=== PATIENT | female | born 1955 | race Caucasian/White ===

== ENCOUNTER 2018-10-17 18:21 | Emergency (ER) | payer OTHER, BC ==
[2018-10-17 18:28] VITALS: BP 124/66; PULSE 65; TEMP 98.7; BMI 23.5
--- NOTE | 2018-10-17 18:57 | PDOC ---
History of Present Illness - General Chief Complaint: Pain, Acute Stated Complaint: RIGHT FOOT PAIN Time Seen by Provider: 10/17/18 18:24 History Source: Patient Exam Limitations: No Limitations - History of Present Illness Initial Comments: 62 yo F PMH HTN, lupus w/ kidney damage and previous MS, p/w R foot pain. Said that she was walking in [employer] when she felt a sudden pain in the middle of her foot. Got worse, and by the time she got to the car, she was unable to walk. Describes the pain as 10/10, throbbing. Tylenol did not help. Also states that she cannot dorsiflex or plantarflex 2/2 to pain. Endorses "shocking" twitches of her foot, which has calmed down with application of ice. Denies CP, SOB, wheezing, constipation/diarrhea, fevers/chills, recent illness. Endorses chronic generalized fatigue. 10/17/18 18:52 Past History - Past Medical History Allergies/Adverse Reactions: Allergies Allergy/AdvReac Type Severity Reaction Status Date / Time Penicillins Allergy Verified 09/10/12 15:23 Home Medications: Ambulatory Orders Atenolol [Tenormin] 25 mg PO DAILY 09/10/12 Doxazosin Mesylate 2 mg PO DAILY 09/10/12 Losartan Potassium [Cozaar] 50 mg PO DAILY 09/10/12 Nifedipine [Procardia Xl] 30 mg PO BID 09/10/12 Sertraline HCl 50 mg PO DAILY 09/10/12 Hydroxychloroquine Sulfate [Plaquenil] 200 mg PO BID 10/17/18 COPD: No Dialysis: Yes Disorders: Yes (RENAL INSUFFICIENCY) HTN: Yes - Suicide/Smoking/Psychosocial Hx Smoking Status: No Smoking History: Never smoked Number of Cigarettes Smoked Daily: 0 Hx Alcohol Use: No Drug/Substance Use Hx: No Review of Systems - Review of Systems Constitutional: Yes: Other (fatigue, chronic). No: Chills, Fever HEENTM: No: Recent change in vision, Hearing Loss, Difficulty Swallowing Respiratory: No: Cough, Shortness of Breath Cardiac (ROS): No: Chest Pain ABD/GI: No: Constipated, Diarrhea, Nausea, Vomiting Neurological: No: Headache *Physical Exam - Vital Signs Last Vital Signs Temp Pulse Resp BP Pulse Ox 98.7 F 65 17 124/66 98 10/17/18 18:22 10/17/18 18:22 10/17/18 18:22 10/17/18 18:22 10/17/18 18:22 - Physical Exam General Appearance: Yes: Nourished, Appropriately Dressed, Mild Distress HEENT: positive: EOMI, MYA, Normal ENT Inspection, Normal Voice, Pharynx Normal Neck: positive: Trachea midline, Supple. negative: Tender Respiratory/Chest: positive: Lungs Clear, Normal Breath Sounds. negative: Chest Tender, Respiratory Distress, Accessory Muscle Use Cardiovascular: positive: Regular Rhythm, Regular Rate Gastrointestinal/Abdominal: positive: Normal Bowel Sounds, Soft. negative: Tender Musculoskeletal: positive: Other (R foot dorsum edema, no erythema. TTP, inability to dorsiflex or plantarflex 2/2 pain. Sensation intact) ED Treatment Course - LABORATORY CBC & Chemistry Diagram: 10/17/18 18:55 10/17/18 18:55 - RADIOLOGY Radiology Studies Ordered: Category Date Time Status FOOT-RIGHT [RAD] Stat Radiology 10/17/18 18:50 Ordered Medical Decision Making - Medical Decision Making CBC CMP ESR uric acid 10/17/18 18:59 Hgb 10.1. Patient uncertain about whether she has had anemia in the past. With complaints of fatigue, strongly encouraged her to see her PCP for further workup. 10/17/18 19:55 Patient complaining of severe pain, giving 2mg of morphine. 10/17/18 20:12 *DC/Admit/Observation/Transfer Diagnosis at time of Disposition: Right foot pain - Discharge Dispostion Disposition: HOME Condition at time of disposition: Guarded Decision to Admit order: No - Referrals Referrals: Christina Finch MD [Primary Care Provider] - Lexa Tomlin MD [Staff Physician] - - Patient Instructions Printed Discharge Instructions: DI for Foot Pain Additional Instructions: You were seen with right foot pain. Your X rays did not show any acute fracture. Please follow up with an orthopedist for further workup. Your labs did show that you have anemia, with a hemoglobin of 10.1. Please follow up with your primary care doctor for further workup. Return to the ED if you develop worsening pain, swelling, loss of sensation, or loss of motor function. - Post Discharge Activity
[2018-10-17 19:11] LABS: BASO % 0.5 % (0-2.0); EOS % 2.2 % (0-4.5); HEMATOCRIT 30.8 % (32.4-45.2); HEMOGLOBIN 10.1 GM/dl (10.7-15.3); LYMPH % 21.3 % (8-40); MCH 31.3 pg (25.7-33.7); MCHC 32.7 g/dl (32.0-36.0); MEAN CELL VOLUME 95.5 fl (80-96); MEAN PLT VOLUME 7.8 fl (7.5-11.1); MONO % 7.2 % (3.8-10.2); NEUT % 68.8 % (42.8-82.8); PLATELET COUNT 268 K/MM3 (134-434); RBC 3.22 M/mm3 (3.60-5.2); RDW 12.5 % (11.6-15.6); WHITE BLOOD COUNT 9.7 K/mm3 (4.0-10.8)
[2018-10-17 19:34] LABS: ALBUMIN 3.5 g/dl (3.4-5.0); BILIRUBIN,TOTAL 0.4 mg/dl (0.2-1); CREATININE 1.6 mg/dl (0.55-1.3); POTASSIUM 4.2 mmol/L (3.5-5.1); TOT PROT 6.3 g/dl (6.4-8.2); URIC ACID 5.9 mg/dl (2.6-7.2)
[2018-10-17] MEDS ORDERED: morphine CARPU-JECT 4 MG/1 ML DISP.SYRIN IVPUSH ONE (20:05)
[2018-10-17] MEDS ORDERED: ACETAMINOPHEN 500 MG TABLET (FP) PO ONE (20:18)
[2018-10-17 20:26] LABS: URINE APPEARANCE CLEAR; URINE BILIRUBIN NEGATIVE (NEGATIVE); URINE COLOR YELLOW; URINE GLUCOSE (UA) NEGATIVE (NEGATIVE); URINE KETONE NEGATIVE (NEGATIVE); URINE LEUK ESTERASE 1+ (NEGATIVE); URINE NITRITE NEGATIVE (NEGATIVE); URINE PROTEIN NEGATIVE (NEGATIVE); URINE UROBILINOGEN 0.2 (0.2-1.0)
[2018-10-17 20:33] LABS: EPI CELLS FEW /HPF; URINE RBC 0-2 /hpf (0-4)
[2018-10-17] MEDS ORDERED: ACETAMINOPHEN 325 MG TABLET (FP) ONE (20:35)
--- NOTE | 2018-10-21 07:45 | PDOC ---
Documentation entered by Sandra Sen SCRIBE, acting as scribe for Rodney Murray MD. Rodney Wallace MD: This documentation has been prepared by the Mckinley garcia Aiswarya, SCRIBE, under my direction and personally reviewed by me in its entirety. I confirm that the documentation accurately reflects all work, treatment, procedures, and medical decision making performed by me. Attending Attestation - Resident Resident Name: SternBecky ponce - ED Attending Attestation I have performed the following: I have examined & evaluated the patient, The case was reviewed & discussed with the resident, I agree w/resident's findings & plan, Exceptions are as noted - HPI HPI: 10/17/18 18:42 Sudden onset of right foot pain while walking [place] [employer]. No acute injury. Pain is on the dorsum of the foot and ankle. There are no physical findings of deformity or inflammation. History of lupus but no prior joint involvement. Also with hypertension and elevated cholesterol. - Physicial Exam PE: 10/17/18 18:59 GENERAL: Awake, alert, and fully oriented, in no acute distress LUNGS: Breath sounds equal, clear to auscultation bilaterally. No wheezes, and no crackles HEART: Regular rate and rhythm, normal S1 and S2, no murmurs, rubs or gallops EXTREMITIES: +Right foot tenderness over the dorsum of the right foot. No clubbing or cyanosis. No cords. NEUROLOGICAL: Cranial nerves II through XII grossly intact. Normal speech, normal gait SKIN: +Right foot mild erythematous tenderness over the dorsum of the right foot. No plantar inflammation. Pulse full. No other deformities. No posterior calf swelling tenderness. No other signs of joint inflammation in other area. - Medical Decision Making 10/21/18 07:44 Assessment: Most likely acute sprain. Other possibilities include avulsion fracture, gout, or flareup of lupus. Plan: X-ray, sedimentation rate, uric acid, CBC and chemistries. Further evaluation and treatment depending on results. Patient clinically stable, nontoxic.
== END 2018-10-17 20:46 | disposition home or self-care (01) ==
LOC: FER 18:21
DX: M79.671 Pain in right foot (principal); I12.0 Hypertensive chronic kidney disease with stage 5 chronic kidney disease or end stage renal disease; N18.6 End stage renal disease
CPT/HCPCS: 36415; 73630-TC-RT-FY; 80053; 81003; 84550; 85025; 85651; 99283-25